=== PATIENT | female | born 1975 | race Hispanic/Latino ===

== ENCOUNTER 2017-11-06 08:29 | Emergency (ER) | payer BC, OTHER ==
[~2017-11-06] VITALS: Ht 167.6 cm; Wt 59.0 kg
[2017-11-06] MEDS ORDERED: ASPIRIN 81 MG CHEW TAB PO STA (08:30)
[2017-11-06 09:13] LABS: BASOPHILS % 0.3 % (0.0-1.0); EOSINOPHILS # (AUTO) 0.1 (0.0-0.4); EOSINOPHILS % 2.3 % (0.0-6.0); HEMATOCRIT 39.8 % (34.2-44.1); HEMOGLOBIN 13.4 g/dL (12.0-16.0); LYMPHOCYTES # (AUTO) 1.5 (1.0-3.2); LYMPHOCYTES % 24.8 % (18.0-39.1); MEAN CORPUSCULAR HEMOGLOBIN 32.1 pg (28-32); MEAN CORPUSCULAR HGB CONC 33.7 g/dL (31-35); MEAN CORPUSCULAR VOLUME 95.2 fL (81-99); MONOCYTES # (AUTO) 0.4 (0.2-0.8); MONOCYTES % 7.2 % (4.4-11.3); NEUTROPHILS % 64.9 % (38.7-80.0); PLATELET COUNT 287 x10e3/uL (140-360); RED BLOOD COUNT 4.18 x10e6/uL (3.6-5.1); RED CELL DISTRIBUTION WIDTH 11.9 % (11.7-14.4)
--- NOTE | 2017-11-06 09:17 | Diagnostic Imaging Report ---
PROCEDURE:CHEST 2 VIEWS TECHNIQUE:PA and lateral chest INDICATION:Chest pain COMPARISON:None. FINDINGS: Lungs are clear and symmetrically inflated. No pleural effusions. Normal heart size, mediastinal contour and pulmonary vasculature. Intact skeleton. CONCLUSION: No acute abnormality. Dictated by: Fredis Solis M.D. on 11/06/2017 at 9:17 Electronically approved by: Fredis Solis M.D. on 11/06/2017 at 9:17
[2017-11-06 09:38] LABS: ALANINE AMINOTRANSFERASE 21 IU/L (0-55); ALBUMIN 4.2 g/dL (3.5-5.0); ALBUMIN/GLOBULIN RATIO 1.2 (0.8-2.0); ALKALINE PHOSPHATASE 50 IU/L (40-150); ANION GAP 10.7 mmol/L (8-16); BLOOD UREA NITROGEN 12 mg/dL (7-26); BUN/CREATININE RATIO 17 (6-25); CALCIUM 9.1 mg/dL (8.4-10.2); CARBON DIOXIDE 26 mmol/L (22-29); CHLORIDE 105 mmol/L (98-107); CREATINE KINASE 57 IU/L (29-168); CREATININE, SERUM 0.72 mg/dL (0.57-1.11); EST GLOMERULAR FILTRATION RATE > 60 ML/MIN (60-); GLUCOSE 84 mg/dL (74-118); POTASSIUM 3.7 mmol/L (3.5-5.1); SODIUM 138 mmol/L (136-145)
== END 2017-11-06 11:11 | disposition home or self-care (01) ==
LOC: ER 08:29
DX: R07.89 Other chest pain (principal); N64.4 Mastodynia; Z80.3 Family history of malignant neoplasm of breast
CPT/HCPCS: 36415; 71046; 80053; 82550; 82553; 84484; 85025; 85379; 93005; 99284